=== PATIENT | female | born 2000 | race Caucasian/White ===

== ENCOUNTER 2021-03-28 03:30 | Emergency (ER) | payer OTHER ==
[~2021-03-28] VITALS: Ht 157.5 cm; Wt 54.4 kg
[2021-03-28 05:57] VITALS: BP 136/85
== END 2021-03-28 06:42 | disposition home or self-care (01) ==
LOC: EDH 03:30
DX: R05 Cough (principal); Z71.1 Person with feared health complaint in whom no diagnosis is made; Z20.822 Contact with and (suspected) exposure to COVID-19
CPT/HCPCS: 71045; 87426; 99281

== ENCOUNTER 2021-03-28 17:40 | Emergency (ER) | payer OTHER ==
[~2021-03-28] VITALS: Ht 157.5 cm; Wt 54.4 kg
[2021-03-28 19:32] VITALS: BP 126/70
== END 2021-03-28 19:51 | disposition home or self-care (01) ==
LOC: EDH 17:40
DX: F41.9 Anxiety disorder, unspecified (principal); R06.02 Shortness of breath
CPT/HCPCS: 99281